=== PATIENT | male | born 1980 | race Caucasian/White ===

== ENCOUNTER 2023-03-29 09:55 | Inpatient (IN) | payer BC ==
[2023-03-29 10:32] VITALS: BMI 23.0
[2023-03-29] MEDS ORDERED: COLLOIDAL OATMEAL 1 BAR EACH TP PRN (15:51)
[2023-03-29] MEDS ORDERED: IBUPROFEN 400 MG TABLET (FP) PO PRN (15:51)
[2023-03-29] MEDS ORDERED: NALOXONE HCL (KLOXXADO) 8 MG SPRAY NS PRN (15:51)
[2023-03-29] MEDS ORDERED: hydrOXYzine PAMOATE 25 MG CAPSULE (FP) PO PRN (15:51)
[2023-03-29] MEDS ORDERED: BENZOCAINE/MENTHOL (CHLORASEPTIC ) LOZENGE MM PRN (15:51)
[2023-03-29] MEDS ORDERED: NALOXONE HCL 0.4 MG/ML VIAL IM PRN (15:51)
[2023-03-29] MEDS ORDERED: guaiFENesin 600 MG TABLET.ER (FP) PO PRN (15:51)
[2023-03-29] MEDS ORDERED: NICOTINE POLACRILEX 2 MG GUM BUC PRN (15:51)
[2023-03-29] MEDS ORDERED: POLYETHYLENE GLYCOL (HEALTHYLAX) 3350 17 GM PACKET PO PRN (15:51)
[2023-03-29] MEDS ORDERED: IBUPROFEN 600 MG TABLET (FP) PO PRN (15:51)
[2023-03-29] MEDS ORDERED: MAG HYDROX/AL HYDROX/SIMETH 30 ML UNIT-DOSE CUP PO PRN (15:51)
[2023-03-29] MEDS ORDERED: MAGNESIUM HYDROX 2400MG/30ML ORAL SUSPENSION 30 ML CUP PO PRN (15:51)
[2023-03-29] MEDS ORDERED: BENZONATATE 200 MG CAPSULE PO PRN (15:51)
[2023-03-29] MEDS ORDERED: LOPERAMIDE HCL 2 MG CAPSULE PO PRN (15:51)
[2023-03-29] MEDS ORDERED: ACETAMINOPHEN 325 MG TABLET (FP) PO PRN (15:51)
[2023-03-29] MEDS: THIAMINE HCL 100 MG TABLET (FP) PO SCH (23:05)
[2023-03-29] MEDS: MELATONIN 5 MG TABLETS PO SCH (23:05)
[2023-03-30] MEDS: PRENATAL VITAMINS W/ FOLIC ACID TABLET (FP) PO SCH (09:47)
[2023-03-30] MEDS: ALBUTEROL SO4 HFA INHALER IH PRN ×2 (16:29→21:05)
[2023-03-30] MEDS: P-EPHED 60MG/TRIPROLIDI 2.5MG TABLET PO PRN (16:31)
[2023-03-30] MEDS: MELATONIN 5 MG TABLETS PO SCH (21:05)
[2023-03-30] MEDS: THIAMINE HCL 100 MG TABLET (FP) PO SCH (21:05)
[2023-03-31] MEDS: PRENATAL VITAMINS W/ FOLIC ACID TABLET (FP) PO SCH (09:19)
[2023-03-31] MEDS: ALBUTEROL SO4 HFA INHALER IH PRN ×2 (15:27→21:13)
[2023-03-31] MEDS: P-EPHED 60MG/TRIPROLIDI 2.5MG TABLET PO PRN (15:30)
[2023-03-31] MEDS: MELATONIN 5 MG TABLETS PO SCH (21:13)
[2023-03-31] MEDS: THIAMINE HCL 100 MG TABLET (FP) PO SCH (21:13)
[2023-04-01 07:07] VITALS: BP 125/76; PULSE 86; RESP 18; TEMP 98.2
[2023-04-01] MEDS: ALBUTEROL SO4 HFA INHALER IH PRN (08:13)
[2023-04-01] MEDS ORDERED: ALBUTEROL SO4 0.083% IH SOL 2.5 MG/3 ML VIAL.NEB. NEB PRN (08:16)
[2023-04-01] MEDS: PRENATAL VITAMINS W/ FOLIC ACID TABLET (FP) PO SCH (10:01)
[2023-04-01 11:36] LABS: PH,URINE 5.5 (5.0-8.0); URINE APPEARANCE CLEAR; URINE BILIRUBIN NEGATIVE (NEGATIVE); URINE COLOR YELLOW; URINE GLUCOSE (UA) NEGATIVE (NEGATIVE); URINE KETONE NEGATIVE (NEGATIVE); URINE LEUK ESTERASE NEGATIVE (NEGATIVE); URINE NITRITE NEGATIVE (NEGATIVE); URINE PROTEIN NEGATIVE (NEGATIVE); URINE UROBILINOGEN 0.2 mg/dL (0.2-1.0)
== END 2023-04-01 14:32 | disposition left against medical advice (07) | DRG 770 ==
LOC: YASAS 09:55 → Y5N 16:17
PROVIDERS: ADMIT Allergy & Immunology; ATTEND Psychiatry & Neurology Pain Medicine
PROC: HZ42ZZZ Group Counseling for Substance Abuse Treatment, Cognitive-Behavioral (ICD-10-PCS; principal; 2023-03-29)
DX: F14.20 Cocaine dependence, uncomplicated (principal); F15.20 Other stimulant dependence, uncomplicated; F10.10 Alcohol abuse, uncomplicated; F12.10 Cannabis abuse, uncomplicated; F17.210 Nicotine dependence, cigarettes, uncomplicated; R06.2 Wheezing; Z59.02 Unsheltered homelessness
CPT/HCPCS: 81003; 87635; 93005; 93010

== ENCOUNTER 2024-03-03 09:34 | Inpatient (IN) | payer BC ==
[2024-03-03 09:53] VITALS: BMI 23.0
[2024-03-03] MEDS ORDERED: BENZONATATE 200 MG CAPSULE PO PRN (10:02)
[2024-03-03] MEDS ORDERED: NICOTINE POLACRILEX 2 MG LOZENGE BC PRN (10:02)
[2024-03-03] MEDS ORDERED: IBUPROFEN 400 MG TABLET (FP) PO PRN (10:02)
[2024-03-03] MEDS ORDERED: BENZOCAINE/MENTHOL (CHLORASEPTIC ) LOZENGE MM PRN (10:02)
[2024-03-03] MEDS ORDERED: guaiFENesin 600 MG TABLET.ER (FP) PO PRN (10:02)
[2024-03-03] MEDS ORDERED: NICOTINE POLACRILEX 2 MG GUM BUC PRN (10:02)
[2024-03-03] MEDS ORDERED: POLYETHYLENE GLYCOL (HEALTHYLAX) 3350 17 GM PACKET PO PRN (10:02)
[2024-03-03] MEDS: TUBERCULIN PPD 5 TU/0.1ML VIAL ID ONE (17:31)
[2024-03-03] MEDS: THIAMINE 100 MG TABLET PO SCH (21:57)
[2024-03-03] MEDS: MELATONIN 5 MG TABLETS PO SCH (21:57)
[2024-03-04] MEDS: PRENATAL VITAMINS W/ FOLIC ACID TABLET (FP) PO SCH (09:58)
[2024-03-04] MEDS: BUDESONIDE/FORMETEROL FUMARATE 160/4.5 mcg INHALER IH SCH (09:58)
[2024-03-04] MEDS: ALBUTEROL SO4 HFA INHALER IH PRN (09:59)
[2024-03-04 11:40] LABS: PH,URINE 5.5 (5.0-8.0); URINE APPEARANCE CLEAR; URINE BILIRUBIN NEGATIVE (NEGATIVE); URINE COLOR YELLOW; URINE GLUCOSE (UA) NEGATIVE (NEGATIVE); URINE KETONE NEGATIVE (NEGATIVE); URINE LEUK ESTERASE NEGATIVE (NEGATIVE); URINE NITRITE NEGATIVE (NEGATIVE); URINE PROTEIN NEGATIVE (NEGATIVE); URINE UROBILINOGEN 0.2 mg/dL (0.2-1.0)
[2024-03-04 11:54] LABS: HEMATOCRIT 41.7 % (35.4-49); HEMOGLOBIN 13.7 GM/dL (11.7-16.9); MCH 29.2 pg (25.7-33.7); MCHC 32.9 g/dl (32.0-35.9); MEAN CELL VOLUME 88.6 fl (80-96); MEAN PLT VOLUME 7.1 fl (7.5-11.1); PLATELET COUNT 403 10^3/uL (134-434); RDW 14.3 % (11.9-15.9); WHITE BLOOD COUNT 7.5 K/mm3 (4.0-10.0)
[2024-03-04 12:12] LABS: POTASSIUM 4.3 mmol/L (3.5-5.1)
[2024-03-04 12:14] LABS: CALCIUM 9.1 mg/dL (8.5-10.1)
[2024-03-04 12:15] LABS: ALBUMIN 2.9 g/dl (3.4-5.0); BLOOD UREA NITROGEN 18.2 mg/dL (7-18)
[2024-03-04 12:18] LABS: CREATININE 0.9 mg/dL (0.55-1.3)
[2024-03-04 12:20] LABS: BILIRUBIN,TOTAL 0.2 mg/dL (0.2-1)
[2024-03-04] MEDS: FLU VACCINE (FLULAVAL) PF 45 MCG/0.5 ML SYRINGE 2024-2025 IM ONE (13:26)
[2024-03-05 00:18] LABS: HIV INTERPRETATION NEGATIVE (NEGATIVE)
[2024-03-09] MEDS: FLU VACCINE (FLULAVAL) PF 45 MCG/0.5 ML SYRINGE 2024-2025 IM ONE (13:05)
[2024-03-09] MEDS: PNEUMOC 20-VAL CONJ-DIP CRM/PF 0.5 ML SYRINGE IM ONE (14:08)
[2024-03-09] MEDS: TOLNAFTATE 1% CREAM 15 GM TUBE TP SCH (14:25)
[2024-03-09] MEDS: ALBUTEROL SO4 0.083% IH SOL 2.5 MG/3 ML VIAL.NEB. NEB PRN (19:58)
[2024-03-09] MEDS ORDERED: ALBUTEROL SO4 0.083% IH SOL 2.5 MG/3 ML VIAL.NEB. NEB ONE (19:58)
[2024-03-09] MEDS: BACLOFEN 10 MG TABLET (FP) PO SCH (21:23)
[2024-03-09] MEDS: ALBUTEROL SO4 HFA INHALER IH PRN (21:24)
[2024-03-10] MEDS: IBUPROFEN 600 MG TABLET (FP) PO PRN (03:25)
[2024-03-10] MEDS: ACETAMINOPHEN 325 MG TABLET (FP) PO PRN (17:23)
[2024-03-10] MEDS: hydrOXYzine PAMOATE 25 MG CAPSULE (FP) PO PRN (17:23)
[2024-03-10] MEDS: SUVOREXANT 10 MG TABLET PO PRN (21:31)
[2024-03-10] MEDS: MAG HYDROX/AL HYDROX/SIMETH 30 ML UNIT-DOSE CUP PO PRN (21:32)
[2024-03-12] MEDS: MAGNESIUM HYDROX 2400MG/30ML ORAL SUSPENSION 30 ML CUP PO PRN (05:46)
[2024-03-12 06:38] VITALS: TEMP 97.3
[2024-03-12] MEDS: NALOXONE (NYS OPIOID OVERDOSE PROGRAM) 4 MG/0.1 ML SPRAY NS SCH (12:37)
[2024-03-12] MEDS ORDERED: NALOXONE (NYS OPIOID OVERDOSE PROGRAM) 4 MG/0.1 ML SPRAY NS PRN (12:39)
[2024-03-12] MEDS ORDERED: SUVOREXANT 10 MG TABLET PO PRN (22:00)
[2024-03-13] MEDS ORDERED: SUVOREXANT 10 MG TABLET PO PRN (22:00)
[2024-03-14 06:49] VITALS: BP 131/72; PULSE 73; RESP 18
[2024-03-14] MEDS: LOPERAMIDE HCL 2 MG CAPSULE PO PRN (08:46)
== END 2024-03-14 10:35 | disposition left against medical advice (07) | DRG 770 ==
LOC: YASAS 09:34 → Y3W 12:10
PROVIDERS: ADMIT Psychiatry & Neurology Pain Medicine; ATTEND Allergy & Immunology
PROC: HZ42ZZZ Group Counseling for Substance Abuse Treatment, Cognitive-Behavioral (ICD-10-PCS; principal; 2024-03-03)
DX: F14.20 Cocaine dependence, uncomplicated (principal); F15.20 Other stimulant dependence, uncomplicated; F17.210 Nicotine dependence, cigarettes, uncomplicated; F43.10 Post-traumatic stress disorder, unspecified; F32.A Depression, unspecified; J45.909 Unspecified asthma, uncomplicated; B35.3 Tinea pedis; Z59.00 Homelessness unspecified
CPT/HCPCS: 36415; 80053; 80305; 81003; 85027; 86593; 86780; 86803; 87389; 87811; 90656; 90677; 94640; G0008; G0009; J0475